=== PATIENT | female | born 1950 | race Two or more races ===

== ENCOUNTER 2016-11-28 05:46 | Day surgery (SDC) | payer BC, SELFPAY ==
--- NOTE | 2016-11-24 15:41 | Pre-Procedure Note/Attestation ---
Pre-Procedure Note/Attestation Complete Prior to Procedure Planned Procedure: right Procedure Narrative: 1. CATARACT EXTRACTION WITH PHACO AND PC IOL IMPLANTATION, RIGHT EYE. Indications for Procedure Pre-Operative Diagnosis: 1. CATARACT ,RIGHT EYE. Attestation I attest that I discussed the nature of the procedure; its benefits; risks and complications; and alternatives (and the risks and benefits of such alternatives ), prior to the procedure, with the patient (or the patient's legal outbound telemarketing representative). I attest that, if there was a reasonable possibility of needing a blood transfusion, the patient (or the patient's legal outbound telemarketing representative) was given the [facility] standardized written summary, pursuant to the [place] Blood Safety Act ([place] Health and Safety Code # 1645, as amended). I attest that I re-evaluated the patient just prior to the surgery and that there has been no change in the patient's H&P, except as documented below: ROBYN MONREAL Nov 24, 2016 15:41
[~2016-11-28] VITALS: Ht 165.1 cm; Wt 78.0 kg
[2016-11-28] VITALS (14 sets, daily range): BP systolic 132–162; BP diastolic 72–96
[~2016-11-28 05:46] MED LIST: Akten 3.5% 1ml Btl ONE; Diclofenac Sod 0.1% Op Soln ONE; Gatifloxacin Opth Solution 0.5% ONE; Phenylephrine 10% Opth Soln 5ml ONE; Tropicamide 1% Opth Soln ONE
[2016-11-28] MEDS ORDERED: acetaZOLAMIDE 125mg tab ORAL ONE (06:00)
[2016-11-28] MEDS ORDERED: Phenylephrine 10% Opth Soln 5ml ONE (06:14)
[2016-11-28] MEDS ORDERED: Gatifloxacin Opth Solution 0.5% ONE (06:14)
[2016-11-28] MEDS ORDERED: Tropicamide 1% Opth Soln ONE (06:15)
[2016-11-28] MEDS ORDERED: Diclofenac Sod 0.1% Op Soln ONE (06:15)
[2016-11-28] MEDS ORDERED: Akten 3.5% 1ml Btl ONE (06:15)
[2016-11-28] MEDS: Akten 3.5% 1ml Btl RIGHT EYE SCH ×3 (06:26→06:59)
[2016-11-28] MEDS: Tropicamide 1% Opth Soln RIGHT EYE SCH ×3 (06:27→07:00)
[2016-11-28] MEDS: Phenylephrine 10% Opth Soln 5ml RIGHT EYE SCH ×3 (06:27→07:00)
[2016-11-28] MEDS: Diclofenac Sod 0.1% Op Soln RIGHT EYE SCH ×3 (06:27→07:00)
[2016-11-28] MEDS: Gatifloxacin Opth Solution 0.5% RIGHT EYE SCH ×3 (06:27→07:00)
[2016-11-28] MEDS ORDERED: HUMIRA40 MG/0.2 SUBQ (06:45)
[2016-11-28] MEDS ORDERED: ZOLOFT25 MG ORAL (06:45)
[2016-11-28] MEDS ORDERED: APRISO0.375 GM PO (06:45)
[2016-11-28] MEDS ORDERED: NEXIUM40 MG ORAL (06:45)
[2016-11-28] MEDS ORDERED: FOLIC ACID1 MG ORAL (06:45)
[2016-11-28] MEDS ORDERED: METHOTREXATE PO (06:45)
[2016-11-28] MEDS ORDERED: CALCIUM500 M2 PO (06:48)
[2016-11-28] MEDS ORDERED: BILBERRY80 MG PO (06:48)
[2016-11-28] MEDS ORDERED: VITAMIN C500 M1 ORAL (06:48)
[2016-11-28] MEDS ORDERED: VITAMIN D1000 UNI1 ORAL (06:48)
[2016-11-28] MEDS ORDERED: fentaNYL 100 mcg/2 mL IV ONE (07:00)
[2016-11-28] MEDS ORDERED: NS Irrig 1000ml ONE (07:00)
[2016-11-28] MEDS ORDERED: Labetalol 5mg/ml 20ml vial IV ONE (07:00)
[2016-11-28] MEDS ORDERED: LR 1000ml ONE (07:00)
[2016-11-28] MEDS ORDERED: Midazolam 2mg/2ml Inj ONE (07:00)
[2016-11-28] MEDS ORDERED: Sterile Water Irrig 1000ml IRRIG ONE (07:00)
[2016-11-28] MEDS ORDERED: Propofol 10mg/ml 20ml IV ONE (07:00)
[2016-11-28] MEDS ORDERED: BSS 500ml btl ONE (07:00)
[2016-11-28] MEDS ORDERED: Dexamethasone 4mg/ml vial ONE (07:01)
[2016-11-28] MEDS ORDERED: Lidocaine 1% MPF 10mg/ml 5ml ONE (07:01)
[2016-11-28] MEDS ORDERED: Tetracaine 0.5% Opth Soln ONE (07:01)
[2016-11-28] MEDS ORDERED: EPINEPHrine 1mg/1ml Amp ONE (07:02)
[2016-11-28] MEDS ORDERED: Sodium Hyaluronate 10 mg/ml 0.85ml ONE (07:02)
[2016-11-28] MEDS ORDERED: BSS 15ml BTL ONE (07:02)
[2016-11-28] MEDS ORDERED: Povidone-Iodine 5% opth solution ONE (07:02)
[2016-11-28] MEDS ORDERED: Carbachol 0.01% Op Soln 1.5ml vial ONE (07:02)
[2016-11-28] MEDS: LR 1000ml 1,000 ML IV SCH ×2 (07:03→08:12)
[2016-11-28] MEDS ORDERED: LR 1000ml 1,000 ML IVLG SCH (07:44)
--- NOTE | 2016-11-28 07:44 | Anethesia Preoperative Eval ---
Anesthesia Pre-op PMH/ROS General Date of Evaluation: Nov 28, 2016 Time of Evaluation: 07:10 Anesthesiologist: Ronnie ASA Score: ASA 2 Mallampati Score Class I : Soft palate, uvula, fauces, pillars visible Class II: Soft palate, uvula, fauces visible Class III: Soft palate, base of uvula visible Class IV: Only hard plate visible Mallampati Classification: Class II Surgeon: Edgar Diagnosis: R eye cataract Surgical Procedure: R eye cataract extraction with IOL Anesthesia History: none Family History: no anesthesia problems Allergies: Uncoded Allergies: peanuts (Allergy, Mild, 11/28/16) itching, rash Medications: see eMAR Past Medical History Cardiovascular: Reports: HTN - borderline, Denies: CAD, PA, arrhythmia, other, valve dz Pulmonary: Denies: COPD, FAITH, asthma, other Gastrointestinal/Genitourinary: Reports: GERD, other - Crohns d-s in stable remission, Denies: CRI, ESRD Neurologic/Psychiatric: Reports: depression/anxiety, Denies: CVA, TIA, dementia, other Endocrine: Denies: DM, hypothyroidism, other, steroids HEENT: Reports: cataract (L), cataract (R), Denies: [place] (L), [place] (R), glaucoma, other Hematology/Immune: Denies: DVT, anemia, bleeding disorder, other Musculoskeletal/Integumentary: Denies: DDD, DJD, OA, RA, edema, other Other: other - overweight PMH Narrative: as above PSxH Narrative: L cataract cholecystectomy, Hysterectomy Anesthesia Pre-op Phys. Exam Physician Exam Last Vital Signs Date Time Temp Pulse Resp B/P Pulse Ox O2 Delivery O2 Flow Rate FiO2 11/28/16 06:52 97.6 56 20 146/83 99 Room Air Constitutional: NAD Neurologic: CN 2-12 intact Cardiovascular: RRR, no M/R/G Respiratory: CTA Gastrointestinal: S/NT/ND Airway Exam Mallampati Score: Class II MO: full Neck: flexible ROM: full Teeth: intact Dentures: no lower, no upper Anesthesia Pre-op A/P Labs see chart Studies Pre-op Studies: EKG - NSR Risk Assessment & Plan Assessment: ASA2 Plan: MAC Status Change Before Surgery: No Pre-Antibiotics Drug: none BLACK GOFF M.D. Nov 28, 2016 07:44
[2016-11-28] MEDS ORDERED: DiphenhydrAMINE 50mg/ml Inj IVP PRN (07:45)
[2016-11-28] MEDS ORDERED: fentaNYL 100 mcg/2 mL IV PRN (07:45)
--- NOTE | 2016-11-28 08:08 | Brief Operative Note ---
Immediate Post Operative Note Operative Note Chief Complaint: Blurry vision, right eye. difficultr driving and reading, right eye Pre-op Diagnosis: 1. CATARACT ,RIGHT EYE. Procedure: Cataract extraction with phaco and PC IOL implantation, right eye. Post-op Diagnosis: same as pre-op Surgeon: Robyn Torrez MD. Case Liner: None Additional Surgeons: None Anesthesiologist: Dr. Trujillo Anesthesia: MAC Specimen: none Complications: none Condition: stable Estimated Blood Loss: none Drains: none Implant(s) used?: Yes - Multifocal PC IOL implanted in the right eye without complication ROBYN TORREZ Nov 28, 2016 08:08
--- NOTE | 2016-11-28 08:10 | Discharge Summary ---
Discharge Summary Discharge Summary Discharge Summary DATE OF ADMISSION:11/28/2016 DATE OF DISCHARGE:11/28/2016 REASON FOR HOSPITALIZATION: Cataract right eye SURGERY PERFORMED: Cataract extraction with phaco and PC IOL implantation, right eye CONDITION IN THE HOSPITAL:The patient tolerated the surgery without complications. DISCHARGE CONDITION: The patient was stable at discharge. DISCHARGE MEDICATIONS: 1. Vigamox eye drops one drop q.i.d, right eye 2. Prednisolone one drop q.i.d, right eye 3. Acular one drop qid, right eye POSTOPERATIVE ORDERS: The patient has to rest at home. No bending, No lifting, No watching Television tonight. POSTOPERATIVE FOLLOW UP: The patient will be followed in my office tomorrow morning at 7 o'clock. ROBYN MONREAL Nov 28, 2016 08:10
--- NOTE | 2016-11-28 08:42 | Immediate Post-Op Evaluation ---
Immediate Post-Op Evalulation Immediate Post-Op Evalulation Procedure: R eye cataract extraction with IOL Date of Evaluation: Nov 28, 2016 Time of Evaluation: 08:05 IV Fluids: 200 Blood Products: none Estimated Blood Loss: nne Urinary Output: none Blood Pressure Systolic: 164 Blood Pressure Diastolic: 87 Pulse Rate: 72 Respiratory Rate: 20 O2 Sat by Pulse Oximetry: 99 Temperature (Fahrenheit): 97.4 Pain Score (1-10): 1 Nausea: No Vomiting: No Complications none Patient Status: awake, patent, none Hydration Status: adequate BLACK GOFF M.D. Nov 28, 2016 08:42
--- NOTE | 2016-11-28 09:46 | 48 Hour Post Anesthesia Eval ---
Post Anesthesia Evaluation Procedure: R eye cataract extraction with IOL Date of Evaluation: Nov 28, 2016 Time of Evaluation: 09:44 Blood Pressure Systolic: 136 0: 72 Pulse Rate: 68 Respiratory Rate: 20 Temperature (Fahrenheit): 97.5 O2 Sat by Pulse Oximetry: 98 Airway: patent Nausea: No Vomiting: No Pain Intensity: 2 Hydration Status: adequate Cardiopulmonary Status: stable Mental Status/LOC: patient returned to baseline Follow-up Care/Observations: n/a Post-Anesthesia Complications: none Follow-up care needed: ready to discharge BLACK GOFF M.D. Nov 28, 2016 09:46
--- NOTE | 2016-11-29 18:45 | Operative Note - Dictated ---
DATE OF OPERATION: 11/28/2016 FACILITY: [facility]. SURGEON: John Torrez M.D. SHIRT FINISHER: None. ANESTHESIOLOGIST: Osmar Trujillo M.D. ANESTHESIA: Monitored anesthesia care (MAC). PREOPERATIVE DIAGNOSES: 1. Cataract, right eye. 2. Posterior synechiae. POSTOPERATIVE DIAGNOSES: 1. Cataract, right eye. 2. Posterior synechiae. SURGERY PERFORMED: 1. Cataract extraction with phacoemulsification of posterior chamber intraocular lens implantation in the right eye. 2. Posterior synechiotomy in the right eye. Indications For Surgery: The patient is a 66-year-old lady with history of Crohn disease with inflammatory bowel disease. 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 She is taking methotrexate, folic acid, aspirin, and Nexium. She is not allergic to any medications. She is not a smoker. She is complaining of blurry vision in the right eye. She has had cataract surgery in the left eye seven years ago and she is happy with the results with multifocal intraocular lens. On examination of the right eye, the cornea is clear. Anterior chamber is clean and quiet. The patient has had longstanding uveitis in this eye with posterior synechiae 05:23 lens. Therefore, the pupil is not responding to light. There is 4+ nuclear sclerosis, 3+ posterior subcapsular cortical cataract. Funduscopy shows normal optic disc, normal macula, and 06:06 plaque. To improve her vision in the right eye, the cataract has to be removed and posterior chamber intraocular lens has to be implanted. INFORMED CONSENT: The nature of the surgery, risks, benefits, alternatives, and potential complications were explained all in detail with the patient. The potential complications including, but not limited to bleeding, infection, posterior capsular rupture, lens subluxation, flat anterior chamber, iris prolapse, uveitis, corneal edema, macular edema, endophthalmitis, retinal detachment, loss of vision, and even loss of the eye were all explained in detail to the patient in her language, Farsi. The patient voiced understanding and accepted all the complications. The alternatives including accommodating lens, multifocal lens, toric lens, and conventional cataract surgery with limbal relaxing incision (LRI) for treatment of astigmatism were all explained in detail to the patient in her language, Farsi. The patient voiced understanding all my explanations. The patient elected to have cataract surgery with insertion of multifocal IOL. Then, she signed the consent form, which is in the chart. Description Of Surgery And Findings: Following that, the patient was taken to the operation room in a stable condition. Lidocaine gel Akten 3.5% was applied to the conjunctiva of the right eye. An IV sedation was given by the anesthesiologist, Dr. Trujillo. After adequate anesthesia and sedation had been achieved, the right eye was prepped and draped in a sterile fashion for intraocular surgery. Following that, a speculum was placed in the right eye. Following that, using a Super Sharp knife, a clear corneal side port was created. Following that, a 1% lidocaine without preservative (MPF) was injected into the anterior chamber. The viscoelastic agent Healon was injected into the anterior chamber. Following that, with 2.8 mm keratome a clear corneal keratotomy was performed. Viscoelastic agent Healon was injected into the anterior chamber again. Following that, Vision Blue was injected under the viscoelastic agent to extend and to 09:45__ the anterior capsule of the lens. Following that, clear viscoelastic agent Healon was injected into the anterior chamber again. Under the viscoelastic agent, an anterior capsulotomy was performed in the fashion of capsulorrhexis beautifully. Following that, all viscoelastic agent was removed from the anterior chamber and hydrodissection and hydrodelineation was performed with balanced salt solution and the nucleus was freed in total. Following that, viscoelastic agent was injected into the anterior chamber to protect the endothelium of the cornea. Following that, using the phacoemulsification machine in the fashion of horizontal chop, the nucleus was removed in total. Following that, using the irrigation and aspiration unit, ____10:48 from the capsular bag and the capsular bag was polished. Following that, the capsular bag was filled with viscoelastic agent Healon. Following that, a +22 diopter [id number] with serial number [id number] was injected into the capsular bag. Following that, using the [employer] hook, the lens was manipulated and put in the proper position. Following that, the viscoelastic agent was removed from the anterior and posterior parts of the lens. The anterior chamber was filled with balanced salt solution. Following that, the wound was hydrated with balanced salt solution and the wound was checked for leakage. There was no leakage. Following that, Vigamox eye drops was applied to the conjunctiva of the right eye. The patient tolerated the surgery without complications. At the end of the surgery, the eye was patched with a clear sterile fenestrated shield. Following that, the patient was transferred to the recovery room. In the recovery room, 125 mg Diamox was given by mouth stat. Postoperative orders and directions were given to the patient. The patient will be discharged home upon stabilization. The patient will be followed in my office tomorrow morning at 7 o'clock. John Torrez M.D. DR: JANIYA JOB#: [id number] CC:
== END 2016-11-28 09:45 | disposition home or self-care (01) ==
LOC: SUR 05:46
DX: H25.11 Age-related nuclear cataract, right eye (principal); H25.041 Posterior subcapsular polar age-related cataract, right eye; H21.541 Posterior synechiae (iris), right eye; I10 Essential (primary) hypertension; K21.9 Gastro-esophageal reflux disease without esophagitis; F32.9 Major depressive disorder, single episode, unspecified; F41.9 Anxiety disorder, unspecified; E66.3 Overweight; Z91.010 Allergy to peanuts; K50.90 Crohn's disease, unspecified, without complications; Z90.49 Acquired absence of other specified parts of digestive tract; Z90.710 Acquired absence of both cervix and uterus
CPT/HCPCS: 66984; J0171; J1100; J2250; J2704; J3010; J7120; V2632; 94003; 94150